=== PATIENT | male | born 1965 | race Caucasian/White ===

== ENCOUNTER 2018-03-09 05:17 | Day surgery (SDC) | payer BC, SELFPAY ==
[2018-03-09] VITALS (7 sets, daily range): BP systolic 110–128; BP diastolic 73–84; PULSE 61–72; RESP 16; TEMP 36.4–37.2; O2SAT 95–100; BMI 31.9
--- NOTE | 2018-03-09 06:17 | PCM.HP.STD ---
Problem List (1) Screening for intestinal cancer Status: Acute History of Present Illness Date of Admission: 03/09/18 The patient is a 52 year old M who presents for screening colonoscopy. He has never had a previous colonoscopy. He denies bright red blood per rectum or melena. No abdominal pain. No unexpected weight loss. There is no family history of colon polyps or colon cancer. He enjoys a good quality of life. He has no chronic medical illnesses. Past Medical History Allergies No Known Allergies Allergy (Verified 03/07/18 10:50) Home Medications: Ambulatory Orders Medication Instructions Recorded Multivitamin [Multiple Vitamins] 1 each PO DAILY 03/07/18 Smoking Status: Current every day smoker Tobacco Use: Vapor Review of Systems Constitutional: Denies: Anorexia HEENT: Denies: Difficulty Swallowing Cardiovascular: Denies: Chest Pain Respiratory: Denies: Cough Gastrointestinal: Denies: Abdominal Pain Endocrine: Denies: Change in Body Habitus VTE Information - Inpt Only VTE Present on Admission: No Patient Problems: Active and Suspected Problems Screening for intestinal cancer (Acute) - Physical Exam General: Alert, Oriented x3, Cooperative, No apparent distress HEENT: Atraumatic Oral: Moist Mucosa Neck: Supple Lungs: Clear to auscultation, Normal air movement Cardiovascular: Regular rate, Regular Rhythm Abdomen: Bowel Sounds Present, Soft, Non Tender Extremities: No Calf Tenderness Neurological: Cranial nerves II-XII grossly intact Psych/Mental Status: Normal Affect Vital Signs Temp Pulse Resp BP Pulse Ox 97.5 F L 72 16 125/76 H 99 03/09/18 05:42 03/09/18 05:42 03/09/18 05:42 03/09/18 05:42 03/09/18 05:42 Oxygen Delivery Method Room Air Weight: 210 lb Body Mass Index (BMI) 31.9 Assessment/Plan All Active Problems Screening for intestinal cancer (Acute) I am recommending the patient is screening colonoscopy with possible biopsy or polypectomy as indicated. He is aware of the technique, benefits, risks, alternatives. He has had an opportunity to ask and have questions answered. We will proceed as noted. Jeff Pelayo M.D., F.A.C.S.
--- NOTE | 2018-03-09 06:48 | OP.ENDO_ITS ---
Patient Name: Jet Kwon Procedure Date: 03/09/2018 6:11 AM Date of : 1965 Age: 52 Procedure: Colonoscopy Indications: Screening for colorectal malignant neoplasm Providers: Jeff Pelayo MD Referring MD: Jeff Pelayo MD Medicines: Midazolam 3.5 mg IV, Meperidine 100 mg IV Patient Profile: Last Colonoscopy: none. The patient's first colonoscopy is today. Complications: No immediate complications. Procedure: Pre-Anesthesia Assessment: - Prior to the procedure, a History and Physical was performed, and patient medications and allergies were reviewed. The patient's tolerance of previous anesthesia was also reviewed. The risks and benefits of the procedure and the sedation options and risks were discussed with the patient. All questions were answered, and informed consent was obtained. Prior Anticoagulants: The patient has taken no previous anticoagulant or antiplatelet agents. ASA Grade Assessment: I - A normal, healthy patient. After reviewing the risks and benefits, the patient was deemed in satisfactory condition to undergo the procedure. After I obtained informed consent, the scope was passed under direct vision. Throughout the procedure, the patient's blood pressure, pulse, and oxygen saturations were monitored continuously. The Colonoscope was introduced through the anus and advanced to the cecum, identified by appendiceal orifice and ileocecal valve. The colonoscopy was performed without difficulty. The patient tolerated the procedure well. The quality of the bowel preparation was good. The ileocecal valve was photographed. Moderate Sedation: Moderate (conscious) sedation was personally administered by the endoscopist. The following parameters were monitored: oxygen saturation, heart rate, blood pressure, and response to care. Total physician intraservice time was 15 minutes. Scope In: 6:28:24 AM Scope Withdrawal Time 0 hours 9 minutes 9 seconds Scope Out: 6:42:42 AM Total Procedure Duration Time 0 hours 14 minutes 18 seconds Findings: The perianal and digital rectal examinations were normal. The colon (entire examined portion) appeared normal. Impression: - The entire examined colon is normal. - No specimens collected. Recommendation: - Discharge patient to home. - Resume previous diet. - Continue present medications. - Repeat colonoscopy in 10 years for screening purposes. Procedure Code(s): --- Professional --- 36821, Colonoscopy, flexible; diagnostic, including collection of specimen(s) by brushing or washing, when performed (separate procedure) 53391, 59, Moderate sedation services provided by the same physician or other qualified health child care supervisor performing the diagnostic or therapeutic service that the sedation supports, requiring the presence of an independent trained observer to assist in the monitoring of the patient's level of consciousness and physiological status; initial 15 minutes of intraservice time, patient age 5 years or older Diagnosis Code(s): --- Professional --- Z12.11, Encounter for screening for malignant neoplasm of colon CPT copyright 2017 [employer]. All rights reserved. The codes documented in this report are preliminary and upon steep tender review may be revised to meet current compliance requirements. Jeff Pelayo MD 03/09/2018 6:47:53 AM This report has been signed electronically. Number of Addenda: 0 Note Initiated On: 03/09/2018 6:11 AM
== END 2018-03-09 07:46 | disposition home or self-care (01) ==
LOC: EN 05:19 → AC 05:20
PROVIDERS: Family Provider Family Medicine; PCP Family Medicine; Referring Provider Surgery; Visit Provider Surgery
PROC: 0DJD8ZZ Inspection of Lower Intestinal Tract, Via Natural or Artificial Opening Endoscopic (ICD-10-PCS; CPT 45378; principal; 2018-03-09 06:25)
DX: Z12.11 Encounter for screening for malignant neoplasm of colon (principal); F17.200 Nicotine dependence, unspecified, uncomplicated
CPT/HCPCS: 45378; 99152; 99153; J7120

== ENCOUNTER 2021-05-14 11:58 | Outpatient (CLI) | payer BC, SELFPAY ==
--- NOTE | 2021-05-14 12:02 | RAD_ITS ---
STUDY: X-RAY - LUMBOSACRAL SPINE REASON FOR EXAM: Male, 55 years old. Pain. Foot drop. TECHNIQUE: 7 view(s) of the lumbosacral spine were obtained. COMPARISON: None FINDINGS: Normal lumbar lordosis. There is no substantial scoliosis. There is normal alignment of the vertebrae. There is no alteration in alignment with flexion or extension. There is multilevel endplate spondylosis of the lumbar vertebrae. There is multi-level degenerative disc disease with multi-level disc space narrowing. This is most marked at L4-5. There is no evidence of acute fracture or loss of vertebral axial height. Normal bilateral sacral ala, sacroiliac joints, and visualized sacrum. Normal visualized soft tissue structures. RAD/L/S Spine Comp/w Bending Views IMPRESSION: The degenerative changes of the lumbar spine without acute fracture or subluxation. There is no evidence of vertebral instability. Electronically Signed: Jim Simmons DO at 17:13 EST Tel [phone], Service support ,
== END 2021-05-14 23:59 | disposition short-term general hospital (02) ==
LOC: MTRAD 12:00
PROVIDERS: Referring Provider Anesthesiology Pain Medicine; Visit Provider Anesthesiology Pain Medicine
DX: M51.37 Other intervertebral disc degeneration, lumbosacral region (principal)
CPT/HCPCS: 72114

== ENCOUNTER 2021-07-13 07:44 | Outpatient (CLI) | payer BC, SELFPAY ==
--- NOTE | 2021-07-13 08:06 | MRI_ITS ---
STUDY: MRI LUMBAR SPINE WITHOUT CONTRAST REASON FOR EXAM: Male, 56 years old. R FOOT DROP TECHNIQUE: Standardized fat and water weighted pulse sequences were obtained in the sagittal and axial planes. COMPARISON: X-ray 05/14/2009 FINDINGS: T12-L1: Normal endplates. Normal disc height, hydration and morphology. Normal bilateral facet joints. Normal central canal and bilateral lateral recesses. Normal bilateral intervertebral neural foramina. Normal lumbar lordosis. There is no substantial scoliosis. Normal conus medullaris that terminates at the T12/L1. L1-2: Normal endplates. Normal disc height, hydration and morphology. Normal bilateral facet joints. Normal central canal and bilateral lateral recesses. Normal bilateral intervertebral neural foramina. L2-3: Mild bilobed disc protrusion produces minimal spinal stenosis and mild bilateral neural foraminal stenosis. L3-4: Mild bilateral facet hypertrophy and moderate ligamentum flavum hypertrophy. Moderate broad disc protrusion produces moderate spinal stenosis with moderate bilateral lateral recess stenosis with abutment of the L4 nerve roots bilaterally and moderate bilateral neural foraminal stenosis with abutment of the L3 nerve root laterally. L4-5: Mild bilateral facet hypertrophy and ligament flavum hypertrophy. 5 mm of retrolisthesis of L4 on L5 with a mild broad disc protrusion produces severe spinal stenosis with severe bilateral recess stenosis with effacement of the L5 nerve roots bilaterally and moderate bilateral neural foraminal stenosis with abutment of the L4 nerve roots. L5-S1: Moderate broad disc protrusion produces moderate spinal stenosis with moderate bilateral recess stenosis with abutment of the S1 nerve roots bilaterally and moderate bilateral neural foraminal stenosis with abutment of the exiting L5 nerve roots bilaterally. Normal visualized sacral ala. Normal visualized paraspinous soft tissue structures. MRI/Spine Lumbar (Routine) IMPRESSION: Multilevel degenerative changes, as described above. Electronically Signed: Alexandr De Anda MD at 10:08 EST ,
== END 2021-07-13 23:59 | disposition home or self-care (01) ==
PROVIDERS: Referring Provider Nurse Practitioner Family; Visit Provider Nurse Practitioner Family
DX: M51.37 Other intervertebral disc degeneration, lumbosacral region (principal); M54.17 Radiculopathy, lumbosacral region
CPT/HCPCS: 72148

== ENCOUNTER 2021-10-29 07:33 | Observation (INO) | payer BC, SELFPAY ==
[2021-10-29] VITALS (13 sets, daily range): BP systolic 126–146; BP diastolic 74–97; PULSE 60–82; RESP 14–18; TEMP 36.3–36.8; O2SAT 95–100; BMI 33.7
[2021-10-29] MEDS: Lactated Ringers 1,000 ML 15 ML IV ×3 (06:16→12:31)
--- NOTE | 2021-10-29 07:30 | RAD_ITS ---
INDICATION: L4-L5 POSTERIOR FUSION EXAMINATION/TECHNIQUE: 7 limited spot intraoperative films from L4-L5 posterior fusion hardware placement are presented for evaluation. Total Fluoroscopic Time: 2 minutes 5 seconds AND number of Fluoroscopic Images: 7 COMPARISON: Lumbar spine MRI from 07/14/2019 FINDINGS: Limited intraoperative fluoroscopic images submitted demonstrate placement of transpedicular posterior fusion hardware and intervertebral disc spacer at the L4-L5 level. RAD/Lumbar Spine 2 or 3 Views IMPRESSION: Placement of L4-L5 fusion hardware and intervertebral disc spacer. Please see intraoperative report for detailed findings. Electronically Signed: Eric Key, at 10:41 EDT ,
--- NOTE | 2021-10-29 07:31 | DS.PCM_ITS ---
Providers Date of Admission: 10/29/21 Primary Care Physician: ISAMAR Lima Reason For Visit: LUMBAR 4-5 POSTERIOR INTERBODY FUSION..... Medications at Discharge Home Medications multivitamin (Multiple Vitamins) 1 ea PO DAILY supplement 03/07/18 Hospital Course Operations - (L4-5 posterior lumbar interbody fusion, decompression, posterior spinal fusion with instrumentation, use of allograft) Summary of Care Provided Minutes Spent on Discharge: 15 Hospital Course: The patient is a 56-year-old male who underwent L4-5 posterior lumbar interbody fusion, decompression, posterior spinal fusion with instrumentation, use of allograft on 10/29/2021. He was subsequently admitted. The hospitalist was consulted for medical management. The patient did well. His pain was controlled and he progressed well with mobilization. His drain was pulled on postoperative day 1. No significant medical issues were reported. He was subsequently discharged home on 10/30/2021 to follow-up with Dr. Silva in 3 weeks Physical Exam Const alert, oriented x3 and no apparent distress General Appearance: cooperative, comfortable and well kempt HEENT normocephalic and head/scalp atraumatic Eyes EOMs intact bilaterally and conjunctivae normal Neck full ROM General: normal visual inspection Chest inspection of chest normal and palpation of chest normal Resp normal respiratory effort and normal air movement Cardio regular rate and peripheral pulses 2+ throughout GI soft to palpation, non-tender and non-distended Back/Spine Back/Spine Narrative: Dressing clean dry and intact. Incision well approximated with interrupted sutures in place. Minimal tenderness. No erythema drainage or fluctuance Cervical Spine: cervical ROM normal Thoracic Spine / Upper Back: normal to inspection Lumbar Spine / Lower Back: normal to inspection Extremity normal to inspection, full ROM, normal capillary refill, no clubbing, cyanosis or edema and no calf tenderness Skin no rashes or lesions noted General Skin Exam: no breakdown Neuro oriented x3, CN's II-XII intact bilaterally, moves all extremities and deep tendon reflexes 2+ bilaterally Neuro Narrative: Chronic right foot drop is noted consistent with preoperative examination. Otherwise sensation and motor are intact grossly Motor Exam: muscle tone normal throughout Weight / BMI Weight Weight: 221 lb 12.8 oz Body Mass Index (BMI) 33.7 D/C Instructions Discharge Diet: No restrictions Lifting Restrictions: 5 pounds Additional Activity Instructions: No repetitive bending twisting. Wear back brace at all times while out of bed Call your doctor if your incision/area has: Continuous Slow Oozing, Sudden Increased Bleeding, Increased Pain/ Swelling, Increased Redness, Foul Smelling Discharge and Swelling at the incision site Call your doctor if you observe: Fever of 101 or Higher, Coldness, Increased Pain, Numbness or Tingling, Change in Color, Inability to urinate, Inability to have a bowel movement, Using more than 1 pad per hour, Shortness of breath, Dizziness, Fainting spells, Swelling in the ankles, Chest pain, Prolonged hiccupping, Increased palpitations (irregular heartbeat), Calf discomfort and Uncontrolled pain Cleanse incision/area with: Do not get Incision Wet and Keep Dressing Clean & Dry Additional Dressing/Incision Instructions: Change dressing daily with iodine gauze and tape. [place] dressing over incision to shower Please Follow Up With: Carlos A Silva DO When: 3 weeks Meaningful Use Info Meaningful Use Diagnoses (Choose all that apply): None applicable Discharge Plan Admission Admit Date/Time: 10/29/21 07:33 Attending Provider: Carlos A Silva Primary Care Provider: Shae Casillas Consulting Providers: Bradly Zapata Instructions Additional Instructions / Restrictions: 1. During your procedure, you received sedation through your IV. Please follow these instructions for the next 24 hours: Do not drive a motor vehicle, do not drink any alcoholic beverages, and do not sign any legal documents or make personal or business decisions. A responsible adult should stay with you at least 6 hours after the procedure. 2. Keep your surgical site/incision clean and the dressing dry and intact. Change dressing daily with iodine gauze and tape. YOu may use an ice pack at the surgical site to reduce any swelling or discomfort. 3. Monitor the incision site for any signs or symptoms of infection. Watch for redness, excessive swelling or drainage, or continued pain at the incision site after 3 days. Contact your physician immediately for a fever, chills or a temperature of 101.5? F or greater. 4. Take your medication exactly as prescribed by your physician. Do not attempt to wean yourself off any of your medications even though your pain is improving. This process needs to be carefully monitored by your doctor. Take any antibiotics prescribed exactly as directed and until they are gone. 5. Avoid stretching, bending, pulling, twisting or any sudden movements. Do not bend or twist at the waist. Wear your back brace at all times when out of bed. Okay to remove to sleep 6. No lifting greater than 5 pounds. 7. Do not operate a motor vehicle, equipment or a power tool while taking pain medication 8. Do not have any manipulation done by a chiropractor or any other physician without first consulting with the surgeon 9. Please contact our office if you are even scheduled for a CT scan or an MRI. 10. Please call us if you have any questions, problems or concerns. Discharge Orders/Prescriptions Prescriptions: No Action multivitamin [Multiple Vitamins] 1 EACH tablet 1 ea PO DAILY Referrals / Follow Up: Carlos A Silva DO [STAFF PHYSICIAN] - Shae Casillas PA [Primary Care Provider] - Disposition Disposition (needs filled in before D/C Order can be placed): Home, Self Care
--- NOTE | 2021-10-29 07:31 | OP.PCM_ITS ---
Problems Associated Problem List Diagnoses (1) Lumbar stenosis: Report of Operation Date of Procedure: 10/29/21 Pre-Operative Diagnosis: 1. Lumbar stenosis, L4-5 with spondylosis 2. Lumbar degenerative disc disease L4-5 3. Herniated disc L4-5 Post-Operative Diagnosis: 1. Lumbar stenosis, L4-5 with spondylosis 2. Lumbar degenerative disc disease L4-5 3. Herniated disc L4-5 Surgery/Procedure Performed:: 1. L4-5 posterior lumbar interbody fusion 2. insertion of intervertebral biomechanical device x1 3. structural allograft for spinal fusion 4. L4 bilateral laminectomies, foraminotomies, facetectomies, decompression of nerve roots 5. L4-5 posterolateral fusion 6. pedicle screw fixation 7. local autograft for spinal fusion 8. neuro monitoring bilateral upper and bilateral lower extremities Description of Surgical Findings:: The patient is a 56-year-old male with intractable back and leg pain and right foot drop. Image studies confirm the above diagnoses. He has failed conservative treatments to include medication, physical therapy and injections. The patient opted for operative intervention understanding the risk to include but not limited to infection, bleeding, damage to nerves arteries and veins, possibility of spinal fluid leak, nonunion, hardware failure, continued pain, need for further surgery, deep vein thrombosis, pulmonary embolism, heart kwame ck, risk of stroke or . The patient was identified in the preoperative holding area. There he received preoperative IV antibiotics Ancef and was then transferred to the operative suite. Once in the operative suite after general endotracheal anesthesia was established the patient was transferred to the [place] operating table in the prone position. All bony prominences were padded accordingly. The lumbar spine was prepped and draped in a standard surgical fashion. Bear hugger's were not turned on until the drapes were placed and sealed with Ioban. A midline incision was made and taken down to the lumbodorsal fascia. The fascia was divided and subperiosteal dissection was taken to the level of the transverse processes bilaterally at L4 and L5. Deep retractors were placed. A bone scalpel was then used to make cuts in the lamina of L4. A series of rongeurs and Kerrisons was used to remove the spinous process and lamina of L4. Then facetectomies of greater than 50% were performed at L4-5 as well as foraminotomies decompressing the bilateral nerve roots. Given the severity of the stenosis I needed to perform wide bilateral laminectomies and near complete facetectomies in order to decompress the neural elements thus creating instability necessitating the fusion. The nerve roots and dura were identified and retracted medially. A 15 blade was then used to perform an annulotomy at L4-5 on the left. An endplate elevator, curettes and pituitaries were utilized to remove disc material. Endplates were prepared with a rasp. An appropriate sized intervertebral peek cage device measuring 7mm was packed with morselized cancellous allograft and impacted into position completing the posterior lumbar interbody fusion at L4-5. I then proceeded with pedicle screw fixation. A power bur was used for the starting points. Pedicle probes were placed bilaterally and then 6.5 x 50 millimeter screws were placed bilaterally at L4 and 6.5 x 50 millimeter screws were placed bilaterally at L5. The screws were tested with intraoperative neurophysiologic monitoring and tested within normal limits. Connecting rods were then applied and secured with set screws. I then proceeded with the posterior lateral fusion. This was accomplished by decorticating the transverse processes bilaterally at L4 and L5. This decorticated bone was then bridged with local autograft from the decompression as well as morselized cancellous allograft thus completing the posterior lateral fusion at L4-5. The incision was thoroughly irrigated. Tisseel was placed over the dura as a hemostatic agent. A deep drain was placed. The fascia was closed with #1 Vicryl, subcutaneous with 2-0 Vicryl and skin with 2-0 nylon. A sterile dressing was applied with 4 x 4's ABD and tape. Sponge instrument and needle counts were correct at the end of the case. Neurophysiologic monitoring was maintained at baseline throughout the duration of the case. The patient was extubated and taken to the PACU without incident. Surgeon: Carlos A Silva Type of Anesthesia: General Drains: Hemovac Estimated Blood Loss (mL): 120cc Fluids Replaced: 1500cc Grafts/Implants Used: Unified spine, Talos, DBM. Vitae OS Complications None Admit VTE Documentation VTE Present on Admission: No
--- NOTE | 2021-10-29 07:31 | PCM.PN.ORT ---
Subjective Subjective The patient was seen and examined postoperatively. He is resting comfortably. His pain is controlled. He denies any acute numbness tingling or weakness Objective Data Objective Data Vital Signs: Vital Signs Temp Pulse Resp BP Pulse Ox 97.7 F L 64 18 126/82 H 100 10/29/21 06:02 10/29/21 06:02 10/29/21 06:02 10/29/21 06:02 10/29/21 06:02 Oxygen Delivery Method Room Air Weight: 221 lb 12.8 oz Body Mass Index (BMI) 33.7 Physical Exam Const alert and oriented x3 General Appearance: cooperative and comfortable HEENT normocephalic and head/scalp atraumatic Eyes EOMs intact bilaterally and conjunctivae normal Neck full ROM General: normal visual inspection Chest inspection of chest normal and palpation of chest normal Resp normal respiratory effort and normal air movement Cardio regular rate, regular rhythm and peripheral pulses 2+ throughout GI soft to palpation, non-tender and non-distended Back/Spine Back/Spine Narrative: Dressing clean dry and intact. Drain in place and functioning Cervical Spine: cervical ROM normal Thoracic Spine / Upper Back: normal to inspection Lumbar Spine / Lower Back: normal to inspection Extremity normal to inspection, full ROM, normal capillary refill, no clubbing, cyanosis or edema and no calf tenderness Skin no rashes or lesions noted General Skin Exam: no breakdown Neuro oriented x3, CN's II-XII intact bilaterally, moves all extremities and deep tendon reflexes 2+ bilaterally Neuro Narrative: Right foot drop noted consistent with preoperative exam. Otherwise sensation and motor intact grossly Motor Exam: muscle tone normal throughout Assessment & Plan Assessment/Plan (1) Lumbar stenosis: PLAN: Plan Okay to admit to floor See orders Back brace on at all times while out of bed Continue antibiotics while drain in place Pain control and mobilization as tolerated Discharge planning, likely home tomorrow
[2021-10-29] MEDS: Cefazolin 2 GM in 0.9% Normal Saline 100 ML IV (07:40)
[2021-10-29] MEDS: Heparin 10,000 UNITS/10 ML Vial 10000 UNITS (08:21)
[2021-10-29] MEDS: THROMBIN (RECOMBINANT) 20,000 UNIT VIAL 20000 UNIT TOPICAL (08:21)
[2021-10-29] MEDS: Bupivacaine Mpf 0.5% 30 ML VIAL (11:23)
[2021-10-29] MEDS: Morphine 2 MG/ML Syringe IV (14:17)
--- NOTE | 2021-10-29 15:18 | PCM.PN.HOSP ---
Subjective Subjective Patient was seen and examined today, he underwent an L4-5 spinal fusion, I saw the patient in PACU, he appears sleepy but comfortable at this time. Besides degenerative disc disease of the lumbar spine, patient does not have any chronic medical problems. Objective Data Objective Data Vital Signs: Vital Signs Temp Pulse Resp BP Pulse Ox 98.0 F 77 17 128/86 H 95 10/29/21 13:54 10/29/21 13:54 10/29/21 13:54 10/29/21 13:54 10/29/21 13:54 Oxygen Flow Rate (L/min) 4 Oxygen Delivery Method Room Air Weight: 100.607 kg Body Mass Index (BMI) 33.7 Intake & Output: Intake and Output for Last 24 Hours 10/27/21 10/28/21 10/29/21 23:59 23:59 23:59 Intake Total 203.75 / 203.75 Output Total 400 / 400 Balance -196.25 / -196.25 Physical Exam Const alert, oriented x3, no apparent distress and healthy appearing Constitutional Narrative: Patient is somewhat somnolent, he does answer questions appropriately General Appearance: cooperative, well kempt and well developed Orientation / Consciousness: awake, oriented to person, oriented to place and oriented to time HEENT normocephalic, head/scalp atraumatic and moist oral mucous membranes Eyes PERRL, EOMs intact bilaterally and conjunctivae normal Neck nuchal rigidity, supple, no JVD, thyroid normal and no carotid bruits General: trachea midline Resp normal respiratory effort, no retractions, no use of accessory muscles and clear to auscultation bilaterally Auscultation: Negative for rales, rhonchi or wheezes Cardio regular rate, regular rhythm, S1 normal heart sound, S2 normal heart sound, no murmurs, no rub and no gallops GI normal to inspection, nondistended, normoactive bowel sounds, soft to palpation, non-tender and non-distended Extremity no clubbing, cyanosis or edema Skin no rashes or lesions noted General Skin Exam: no breakdown Neuro oriented x3, CN's II-XII intact bilaterally, no focal motor deficits and no sensory deficits noted Neuro Narrative: Patient is somnolent, he does respond appropriately to questions Sensorium / Orientation: awake and alert Psych affect normal Assessment & Plan Assessment/Plan (1) Lumbar stenosis: PLAN: Plan 1. Lumbar stenosis L4-5 with spondylosis-postop day 0 L4-5 posterior lumbar interbody fusion-patient appears medically stable at this time #2 degenerative disc disease of the lumbar spine-continue present care postop, PT and OT will see patient #3 past history of hypertension-patient does not currently take any blood pressure medications, his blood pressure will be monitored Charges/Coding Visit Charges Inpatient E&M: 54931 Subs Hosp L2
[2021-10-29] MEDS: Acetaminophen 500 MG Tablet 1000 MG PO ×2 (16:22→21:14)
[2021-10-29] MEDS: Cefazolin 1 GM/50 ML BAG IV ×2 (16:22→23:20)
[2021-10-29] MEDS: Lactated Ringers 1,000 ML 100 ML IV (16:23)
[2021-10-29] MEDS: Ensure Surgery 237 ML LIQUID PO (18:28)
[2021-10-30] MEDS: Lactated Ringers 1,000 ML 100 ML IV (02:53)
[2021-10-30 03:00] VITALS: BP 113/68; PULSE 60; RESP 16; TEMP 36.6; O2SAT 95
[2021-10-30] MEDS: oxyCODONE 5 MG Tablet PO ×2 (03:47→10:01)
[2021-10-30] MEDS: Acetaminophen 500 MG Tablet 1000 MG PO (05:55)
[2021-10-30] MEDS: Multivitamins,Therapeutic Tablet 1 TABLET PO (09:53)
[2021-10-30] MEDS: Ensure Surgery 237 ML LIQUID PO (09:54)
[2021-10-30 10:02] VITALS: BP 109/68; PULSE 69; RESP 18; TEMP 36.5; O2SAT 96
--- NOTE | 2021-10-30 10:40 | CASEMGMT ---
BARBARA WAYNE Assessment: Face to Face with pt for initial transition planning/care coordination assessment. RN TONE introduced self and role at [facility], pt voices understanding and consents to assessment. Pt is A/O x4 and answers all questions appropriately at this time. Pt sitting up in chair in no distress. Care providers, pharmacy, and demographics verified/updated. Admitting Dx: lumbar 4-5 post interbody fusion PCP:Vinny Specialists:Shira, spine [place] Preferred Pharmacy:[facility] Retail Insurance: [employer] Prescription Benefit: yes LW/HPOA: Pt denies having a LW/DPOA and denies need for info regarding AD. LNOK: Cherie Kwon, Living Arrangements: Pt lives with in an upper level apt with 12 steps to enter. States there is 7 steps then a platform followed by 5 steps with a rail. Pt reports he is I in ADL's and denies concerns at home. Transportation: Pt drives self and denies concerns with transportation. is able to transport until pt can drive again. DME/HHC/SNF: Pt has a walker he is borrowing. Pt has grab bars in the shower as well as one by the toilet. Pt denies hx of HHC or SNF stays. Pt states no concerns with going home at time of dc. Pt states no further concerns/needs. CM to follow. Advised pt to ask CM if any further question/concerns/needs arise, voices understanding. Pt Goal: Home Plan: Home
== END 2021-10-30 13:41 | disposition home or self-care (01) ==
LOC: SDC 12:00 → MS3 10-30 08:43
PROVIDERS: Admitting Provider Orthopaedic Surgery; Referring Provider Orthopaedic Surgery; Visit Provider Orthopaedic Surgery
PROC: 0SG00AJ Fusion of Lumbar Vertebral Joint with Interbody Fusion Device, Posterior Approach, Anterior Column, Open Approach (ICD-10-PCS; CPT 22630; principal; 2021-10-29 07:00)
DX: M47.816 Spondylosis without myelopathy or radiculopathy, lumbar region (principal); M48.061 Spinal stenosis, lumbar region without neurogenic claudication; M51.26 Other intervertebral disc displacement, lumbar region; I10 Essential (primary) hypertension; F17.290 Nicotine dependence, other tobacco product, uncomplicated; M21.371 Foot drop, right foot
CPT/HCPCS: 22633; 63053; 20931; 20936; 22853; 22842; 00670; 63052; 72100; 76000; 96361; 96365; 96366; 96375; 97162; 97530; 99218; 99251; C1713; J7120; G0378; G0463; J2405

== ENCOUNTER → 2022-07-01 | Outpatient (CLI) | payer BC, SELFPAY ==
--- NOTE | 2022-07-01 08:18 | RAD_ITS ---
STUDY: X-RAY - ABDOMEN/PELVIS REASON FOR EXAM: Male, 57 years old. KIDNEY STONE TECHNIQUE: Single AP view of the abdomen / pelvis. COMPARISON: None. FINDINGS: Normal visualized lung bases. There is a moderate amount of colonic fecal material. There is a 4.4 mm calculus in the right mid abdomen at the level of the L2-L3 disc space level. Normal soft tissue structures. Prior fusion and laminectomy at the L4-L5 level. RAD/Abdomen Single View IMPRESSION: Findings suggestive of a 4.4 mm calculus in the right mid abdomen at the level of the L2-L3 disc space level suggestive of a right mid ureteral calculus. Electronically Signed: Jake Plaza MD at 9:02 EST ,
== END | disposition home or self-care (01) ==
LOC: RAD 08:17
PROVIDERS: Referring Provider Urology; Visit Provider Urology
DX: N20.1 Calculus of ureter (principal)
CPT/HCPCS: 74018

== ENCOUNTER → 2022-07-29 | Outpatient (CLI) | payer BC, SELFPAY ==
--- NOTE | 2022-07-29 14:24 | RAD_ITS ---
INDICATION: KIDNEY STONE EXAMINATION/TECHNIQUE: X-RAY - XR Abdomen 1 View COMPARISON: 07/01/2022 FINDINGS: BOWEL GAS PATTERN: Non-obstructive. No bowel or stomach distention. FREE AIR: Not assessed on a single supine view. ORGANOMEGALY: Not seen. CALCIFICATIONS: Tiny left renal calculi redemonstrated. No definite right urinary calculus, though evaluation is complicated by extensive large bowel stool. LOWER CHEST: No acute abnormal finding. BONES AND SOFT TISSUES: No acute abnormal finding. RAD/Abdomen Single View IMPRESSION: No definite right urinary calculus, though evaluation is complicated by extensive stool. Tiny left renal calculi redemonstrated. Electronically Signed: Wilton Lopez MD at 18:59 EDT ,
== END | disposition home or self-care (01) ==
LOC: RAD.FUTURE 14:22
PROVIDERS: Referring Provider Urology; Visit Provider Urology
DX: N20.0 Calculus of kidney (principal)
CPT/HCPCS: 74018

== ENCOUNTER → 2025-03-08 | Outpatient (CLI) | payer OTHER, SELFPAY ==
--- NOTE | 2025-03-08 12:56 | MRI_ITS ---
PROCEDURE: MRI/Spine Lumbar W/WO Contrast
== END | disposition home or self-care (01) ==
LOC: MRI 12:54
PROVIDERS: Referring Provider Student in an Organized Health Care Education/Training Program; Visit Provider Student in an Organized Health Care Education/Training Program
DX: M51.369 Other intervertebral disc degeneration, lumbar region without mention of lumbar back pain or lower extremity pain (principal); Z98.1 Arthrodesis status; M54.16 Radiculopathy, lumbar region
CPT/HCPCS: 72158; A9575